=== PATIENT | female | born 1950 | race Two or more races ===

== ENCOUNTER 2025-07-15 00:56 | Emergency (ER) | payer OTHER, MEDICAID ==
[~2025-07-15] VITALS: Ht 157.5 cm; Wt 67.2 kg
--- NOTE | 2025-07-15 01:35 | ED.PDOC ---
History of Present Illness HPI Comments 74 y/o Malagasy-speaking F, with a history of Alzheimer's, hypertension, and hypothyroidism, is [id number] daughter for c/c of hypertension. Per daughter, patient began endorsing on her suspecting her blood pressure being elevated at 1210, this morning, after taking 1x 50mg Losartan prescription medication at 2000, last night. Initial at-home blood pressure was in the 200's systolic before patient's blood pressure was remeasured, again, at 208 after taking another 50mg Losartan. En route, patient was also reported to began complaining of chest, back, and head pain. Upon arrival to ED, pain is stated to have improved, with patient only endorsing on having chest pressure instead. Other notable recent events include patient starting on a new medication for her Alzheimer's in addition to her having trouble sleeping, lately. Patient takes 75mg levothyroxine, with last oral intake being yesterday morning. REVIEW OF SYSTEMS: General: No fever, no chills, HEENT: No neck pain, no blurred vision Cardiac: Hypertension. Chest pressure. No palpitations. Lungs: No shortness of breath, GI: No abdominal pain, no vomiting Musculoskeletal: No joint pain , no back pain Skin: No rash, no wound Neuro: No headache, no dizziness, no syncope PHYSICAL EXAM: General: Awake, alert and oriented. No acute distress. Skin: Skin in warm, dry and intact without rashes or lesions. HEENT: The head is normocephalic and atraumatic. Conjunctivae are clear without exudates or hemorrhage. Sclera is non-icteric. Neck: Normal range of motion. No JVD. Cardiac: Regular rate Respiratory: No signs of respiratory distress. No Stridor. Extremities: Upper and lower extremities are atraumatic in appearance without deformity. Neurological: The patient is awake, alert and oriented to person, place, and time with normal speech. Speech is clear. There is no facial asymmetry. Psychiatric: Appropriate mood and affect. Good judgement and insight. Chief Complaint: High Blood Pressure Time Seen by MD: 01:20 Reviewed Notes: Nurses Notes, Medications, Allergies Allergies: Coded Allergies: Penicillins (Verified Allergy, Unknown, 07/15/25) Information Source: Patient Mode of Arrival: Ambulatory Past Medical History PAST MEDICAL HISTORY: Dementia (Alzheimer), HTN, Thyroid (Hypothyroidism) Was a procedure done? Was a procedure done?: No Differential Dx Considerations may include: Differential diagnoses considered include acute ischemic coronary syndrome, aortic dissection, cardiac tamponade, mediastinitis, pulmonary embolus, pneumothorax, tension pneumothorax, esophageal rupture, coronary artery vasospasm, myocarditis, pericarditis, pneumonia, pulmonary edema, esophageal tear, pancreatitis, aortic stenosis, dilated cardiomyopathy, hypertrophic cardiomyopathy, mitral valve prolapse, malignancy, pleuritis, pneumomediastinum, primary pulmonary hypertension, cholecystitis, esophageal spasm, esophagus, gastritis, GERD, peptic ulcer disease, costochondritis, fibromyalgia, rib fracture, herpes zoster, radicular syndromes, thoracic outlet syndrome, somatization, hypertensive emergency, inappropriate medication dosage, noncompliance,. X-Ray, Labs, Meds, VS Vital Signs Date Time Temp Pulse Resp B/P (MAP) Pulse Ox O2 Delivery O2 Flow Rate FiO2 07/15/25 05:33 132/76 (94) 07/15/25 04:36 77 175/97 (123) 96 07/15/25 04:30 175/97 07/15/25 03:39 97.6 75 17 199/107 (137) 96 97.6 07/15/25 03:25 76 07/15/25 00:58 98.3 83 18 206/114 97 98.3 Lab Test 07/15/25 05:05 07/15/25 02:41 07/15/25 01:37 Range/Units Troponin I High Sensitivity Pending 4 5 </=34 ng/L White Blood Count 10.3 4.4-10.8 10^3/uL Red Blood Count 4.90 4.0-5.20 10^6/uL Hemoglobin 15.1 12.2-16.2 g/dL Hematocrit 44.3 36.0-46.0 % Mean Corpuscular Volume 90.5 80.0-100.0 fL Mean Corpuscular Hemoglobin 30.8 28.0-32.0 pg Mean Corpuscular Hemoglobin Concent 34.0 32.0-36.0 g/dL Red Cell Distribution Width 14.0 11.8-14.3 % Platelet Count 293 140-450 10^3/uL Mean Platelet Volume 9.1 6.9-10.8 fL Neutrophils (%) (Auto) 58.1 37.0-80.0 % Lymphocytes (%) (Auto) 31.8 10.0-50.0 % Monocytes (%) (Auto) 7.8 0.0-12.0 % Eosinophils (%) (Auto) 1.4 0.0-7.0 % Basophils (%) (Auto) 0.9 0.0-2.0 % Neutrophils # (Auto) 6.0 1.6-8.6 10 ^3/uL Lymphocytes # (Auto) 3.3 0.4-5.4 10 ^3/uL Monocytes # (Auto) 0.8 0-1.3 10 ^3/uL Eosinophils # (Auto) 0.1 0-0.8 10 ^3/uL Basophils # (Auto) 0.1 0-0.2 10 ^3/uL Nucleated Red Blood Cells 0.0 % Sodium Level 142 136-145 mmol/L Potassium Level 3.8 3.5-5.1 mmol/L Chloride Level 104 98-107 mmol/L Carbon Dioxide Level 30 20-31 mmol/L Anion Gap 8 5-15 Blood Urea Nitrogen 12 9-23 mg/dL Creatinine 0.77 0.550-1.02 mg/dL Glomerular Filtration Rate Calc 81 >90 mL/min BUN/Creatinine Ratio 15.6 10.0-20.0 Serum Glucose 109 H 74-106 mg/dL Calcium Level 9.5 8.7-10.4 mg/dL B-Type Natriuretic Peptide 48.94 0-100 pg/mL Current Medications Medications (Trade) Dose Ordered Sig/Helen Route Start Time Stop Time Status Last Admin Clonidine HCl (Catapres Tablet) 0.1 mg ONCE ONCE PO 07/15/25 03:45 07/15/25 03:46 DC 07/15/25 04:30 Time of 1ST Reevaluation: 01:50 Reevaluation 1ST: Unchanged Patient Education/Counseling: Treatment, Need For Follow Up Family Education/Counseling: Treatment, Need For Follow Up, No Family Present SEPSIS Sepsis Screen Date sepsis recognized/suspect: Jul 15, 2025 Time Sepsis recognized/suspect: 005 Recent Procedure: No On Antibiotic Therapy: No Respiratory Rate >20: No Heart Rate >90: No Temp<36 C (96.8 F) or >38.3 C: No SBP <90 or MAP <65 mmHG: No New Acute Mental Status Change: No Is the patient on CPAP, BIPAP,: No Physician Orders Chest Xray 1 View (10/21/25 01:28) Troponin-I Hs (07/15/25 04:28) Electrocardigram (07/15/25 02:28) Blood Pressure (07/15/25 ) Vital Signs Date Time Temp Pulse Resp B/P (MAP) Pulse Ox O2 Delivery O2 Flow Rate FiO2 07/15/25 05:33 132/76 (94) 07/15/25 04:36 77 175/97 (123) 96 07/15/25 04:30 175/97 07/15/25 03:39 97.6 75 17 199/107 (137) 96 97.6 07/15/25 03:25 76 07/15/25 00:58 98.3 83 18 206/114 97 98.3 Laboratory Tests Test 07/15/25 01:37 White Blood Count 10.3 10^3/uL (4.4-10.8) Medications Medications Dose Ordered Sig/Helen Route Start Time Stop Time Status Last Admin Dose Admin Clonidine HCl 0.1 mg ONCE ONCE PO 07/15/25 03:45 07/15/25 03:46 DC 07/15/25 04:30 Departure 1 Departure Time of Disposition: 05:35 Impression: Primary Impression: Hypertension Disposition: 01 HOME / SELF CARE / HOMELESS Condition: Stable Additional Instructions: INSTRUCCIONES DE CESAR DE Urgencias Instrucciones: Edwina atentamente todas las instrucciones proporcionadas en yannick paquete. Aunque le hayan dado el cesar del Departamento de Emergencias, esto no significa que tenga un "certificado de buena neeta". Hoy no se loera realizado ningn diagnstico definitivo para kiki sntomas. Es posible que ests en proceso de desarrollar steve enfermedad grave. Es por eso que debe regresar al servicio de urgencias sin falta si presenta algn sntoma nuevo o que empeora (especialmente si kiki sntomas incluyen dolor en el pecho, dificultad para respirar, dolor abdominal, fiebre, dolor de elmer, confusin, dificultad para jaci o caminar). Alma es muy importante que consulte a un mdico de atencin primaria dentro de los prximos 1 a 3 levine para realizar un seguimiento. Si no puede conseguir steve nahomy, regrese al servicio de urgencias para steve nueva evaluacin. Hoy tuviste steve lectura de presin arterial elevada. La hipertensin no tratada puede tener consecuencias graves. Sin embargo, necesitas steve nahomy de seguimiento para volver a revisar tu presin arterial y determinar si necesitas tratamiento o no. Haz steve nahomy con tu proveedor de atencin primaria para esto dentro de la prxima semana. Dolor en el pecho: Instrucciones de cuidado Tabla de contenido Descripcin general Firer [employer]ort puedes cuidarte en casa? Cundo debes pedir ayuda? Crditos Descripcin general Hay muchas cosas que pueden causar dolor en el pecho. Algunas no son graves y mejoran por s solas en unos levine. Sin embargo, algunos tipos de dolor en el pecho requieren ms pruebas y tratamiento. Es posible que hernandez mdico le haya recomendado steve visita de seguimiento en los prximos levine. Si no mejora, es posible que necesite ms pruebas o tratamiento. Aunque hernandez mdico le haya dado de cesar, debe estar atento a cualquier problema. El mdico le realiz steve revisin exhaustiva, elijah a veces pueden surgir problemas ms adelante. Si presenta sntomas nuevos o si estos no mejoran, busque atencin mdica de inmediato. Si tiene un dolor o presin en el pecho peor o diferente que dura ms de 5 minutos o si se desmay (perdi el conocimiento), llame al 911 o busque otra ayuda de emergencia de inmediato. Steve visita mdica es solo un paso en hernandez tratamiento. Incluso si se siente mejor, debe seguir las recomendaciones de hernandez mdico, jack asistir a todas las citas de seguimiento sugeridas y zulma los medicamentos exactamente jack se le indique. [place] le ayudar a recuperarse y a prevenir problemas futuros. Firer Retort puedes cuidarte en casa? Descansa hasta que te sientas mejor. [place] hernandez medicamento exactamente jack se lo recetaron. Llame a hernandez mdico si shaye que tiene algn problema con hernandez medicamento. No conduzca despus de zulma un analgsico recetado. Cundo debes pedir ayuda? Llame al 911 si: Te desmayaste (perdiste el conocimiento). Tienes dificultad grave para respirar. Tiene sntomas de un ataque cardaco. Estos pueden incluir: Dolor o presin en el pecho, o steve sensacin extraa en el pecho. Transpiracin. Dificultad para respirar. Nuseas o vmitos. Dolor, presin o steve sensacin extraa en la espalda, el myesha, la mandbula o la parte superior del abdomen o en hayley o ambos hombros o brazos. Mareo o debilidad repentina. Un ritmo cardaco rpido o irregular. Despus de llamar al 911 , el operador podra indicarle que mastique steve aspirina para adultos o de 2 a 4 aspirinas de dosis baja. Espere la ambulancia. No intente conducir. Llame a hernandez mdico ahora o busque atencin mdica inmediata si: Tienes alguna dificultad para respirar. Tiene un dolor en el pecho nuevo o diferente. Se siente mareado o aturdido o jack si se pudiera desmayar. Preste atencin de cerca a los cambios en hernandez neeta y asegrese de comunicarse con hernandez mdico si no mejora jack se esperaba. Crditos para el dolor de pecho: Instrucciones de cuidado Actualizado al: 2023 Autor: Personal de [employer] Junta de revisin clnica Toda la educacin de [employer] es revisada por un equipo que incluye mdicos, enfermeras, profesionales avanzados, dietistas registrados y otros profesionales de la neeta. Discharged With: Self Comments MDM: Blood pressure improved. Patient no longer reporting CP. EKG negative for signs of ischemia. High sensitivity troponin negative. CXR shows no acute process. Presentation not suggestive of acute coronary syndrome, pulmonary embolism or aortic dissection. Patient has not been hypoxic, in respiratory distress or dyspneic during the ED observation. Patient able to ambulate without difficulty. Patient felt stable for discharge to follow up with PCP promptly. Patient advised to return to the ED with any new, worsening or concerning symptoms or inability to follow up with PCP. Extensive evaluation was performed in attempt to identify or rule out: (See differential diagnosis section) The following tests were ordered, and results were reviewed by me and discussed with patient: (See diagnostic results section) The following test were independently interpreted by me: EKG I reviewed and agreed with the following test results read by other providers: N/A I reviewed the following notes from the pt's past medical encounters: N/A Additional information was gathered from interviewing the following independent historians:Patient's daughter Discussion of management or test interpretation with external physician/other qualified health skin care specialist: N/A Addressed one or more chronic illnesses with severe exacerbation, progression, or side effects of treatment: HTN Decision regarding hospitalization or escalation of hospital level of care: Risks and benefits of admission for further treatment of patient's condition was considered however due to patient's stable condition patient will be discharged to follow up closely or return to care for worsening of condition or inability to follow up. Critical Care Note Critical Care Time?: No Stability Stability form required: No Heart Score Heart Score: Heart Score Response (Comments) Value History N/A 0 EKG N/A 0 Age N/A 0 Risk Factors N/A 0 Troponin N/A 0 Total 0 I personally scribed for EMMANUEL LOPEZ MD ([email or web address]) on 07/15/25 at 01:35. Electronically submitted by Magno Davenport ([email or web address]). EMMANUEL LOPEZ MD Jul 15, 2025 01:35
[2025-07-15 02:10] LABS: Hematocrit 44.3 % (36.0-46.0); Hemoglobin 15.1 g/dL (12.2-16.2); Mean Corpuscular Hemoglobin 30.8 pg (28.0-32.0); Mean Corpuscular Volume 90.5 fL (80.0-100.0); Nucleated Red Blood Cells % 0.0 %
[2025-07-15 02:14] LABS: Chloride 104 mmol/L (98-107); Potassium 3.8 mmol/L (3.5-5.1); Sodium 142 mmol/L (136-145)
[2025-07-15 02:15] LABS: Anion Gap 8 (5-15); Calcium 9.5 mg/dL (8.7-10.4); Carbon Dioxide 30 mmol/L (20-31)
[2025-07-15 02:20] LABS: BUN/Creatinine Ratio 15.6 (10.0-20.0); Blood Urea Nitrogen 12 mg/dL (9-23)
--- NOTE | 2025-07-15 02:26 | DVH ---
CHEST RADIOGRAPH Indication: cp Technique: Single frontal view of the chest was obtained COMPARISON: None FINDINGS: Lines and Tubes: None Lungs: Clear Pleura: No effusion. No pneumothorax. Cardiomediastinal contours: Unremarkable Bones: Unremarkable IMPRESSION: 1. No acute disease.
[2025-07-15 02:27] LABS: Glucose 109 mg/dL (74-106)
--- NOTE | 2025-07-15 03:27 | ECG ---
[facility] Test Date: 2025-07-15 Test Time: 03:25:42 Pat Name: ZOHREH DIANA Department: ED Room: Gender: F Member Of Congress: JOSE CARLOS : 1950 Requested By: EMMANUEL LOPEZ Order Number: [id number] Reading MD: Measurements Intervals [place] Rate: 76 P: 45 [place]: 169 QRS: -45 QRSD: 90 T: 55 QT: 432 QTc: 486 Interpretive Statements Sinus rhythm Probable left atrial enlargement Left anterior fascicular block Abnormal R-wave progression, late transition Probable left ventricular hypertrophy Borderline prolonged QT interval Please click the below link to view image of tracing.
[2025-07-15 03:39] VITALS: RESP 17; TEMP 97.6
[2025-07-15 04:36] VITALS: PULSE 77; O2SAT 96
[2025-07-15 05:33] VITALS: BP 132/76
== END 2025-07-15 05:54 | disposition home or self-care (01) ==
LOC: ER 00:56
DX: I10 Essential (primary) hypertension (principal); R07.89 Other chest pain; R51.9 Headache, unspecified; G30.9 Alzheimer's disease, unspecified; Z88.0 Allergy status to penicillin; E03.9 Hypothyroidism, unspecified
CPT/HCPCS: 36415; 71045; 80048; 83880; 84484; 85025; 93005